=== PATIENT | female | born 1965 | race Caucasian/White ===

== ENCOUNTER 2022-05-25 22:59 | Emergency (ER) | payer OTHER ==
[~2022-05-25] VITALS: Ht 162.6 cm; Wt 102.1 kg
--- NOTE | 2022-05-25 23:00 | NUR ---
PT BIBA BLS ER BED 7
[2022-05-25 23:01] VITALS: BP 179/103
--- NOTE | 2022-05-25 23:02 | NUR ---
Dr. Bower examining patient.
--- NOTE | 2022-05-26 00:26 | NUR ---
attempted to call pt number on file but the phone number is not in service.
--- NOTE | 2022-05-26 01:30 | NUR ---
SPOKE WITH ANNE BURRELL FOR PUBLIC SERVICE TO PT HOME. PT IS DISCHARGED AND UNABLE TO REMEMBER PHONE NUMBER BUT ADDRESS GIVEN. SPOKE WITH DISPATCHER WILL SEND OFFICER TO REACH SUL[place], HER SON OR BROTHER TO PICK PT UP.
--- NOTE | 2022-05-26 01:48 | NUR ---
spoke with officer sasha that the officer spoke with brother linda baird will pick pt up in about 10mins. brother's phone #[phone]
[2022-05-26 02:13] VITALS: BP 161/99
--- NOTE | 2022-05-26 02:13 | NUR ---
Patient discharged. Written and verbal after care instructions given and explained about alcohol intoxication and fall prevention at home. Patient verbalized understanding. Wheel Chair Assisted to car with Tae the son picking patient up. All questions addressed prior to discharge. Advised to follow up with PMD.
== END 2022-05-26 02:13 | disposition home or self-care (01) ==
LOC: MED 22:59
DX: F10.129 Alcohol abuse with intoxication, unspecified (principal); Y90.9 Presence of alcohol in blood, level not specified
CPT/HCPCS: 99283

== ENCOUNTER 2022-08-31 19:27 | Emergency (ER) | payer OTHER ==
[~2022-08-31] VITALS: Ht 149.9 cm; Wt 90.3 kg
[2022-08-31 19:59] VITALS: BP 142/85
[2022-08-31] MEDS ORDERED: KETOROLAC 60 MG/2 ML VIAL IM ONE (20:20)
[2022-08-31] MEDS ORDERED: PRED20TA5 PO (20:23)
[2022-08-31] MEDS ORDERED: IBUP-2213 PO (20:23)
[2022-08-31 20:40] VITALS: BP 142/85
--- NOTE | 2022-08-31 20:40 | NUR ---
Patient discharged with v/s stable. Written and verbal after care instructions given and explained. Patient alert, oriented and verbalized understanding of instructions. Ambulatory with steady gait. All questions addressed prior to discharge. ID band removed. Patient advised to follow up with PMD. Rx of PREDNISIONE IBUPROFEN given. Patient educated on indication of medication including possible reaction and side effects. Opportunity to ask questions provided and answered.
== END 2022-08-31 20:40 | disposition home or self-care (01) ==
LOC: MED 19:27
DX: J02.9 Acute pharyngitis, unspecified (principal); R05.9 Cough, unspecified; I10 Essential (primary) hypertension; E11.9 Type 2 diabetes mellitus without complications; Z86.73 Personal history of transient ischemic attack (TIA), and cerebral infarction without residual deficits; Z79.4 Long term (current) use of insulin; Z79.899 Other long term (current) drug therapy
CPT/HCPCS: 96372; 99283; J1885

== ENCOUNTER 2023-11-08 22:14 | Emergency (ER) | payer OTHER ==
[~2023-11-08] VITALS: Ht 149.9 cm; Wt 95.3 kg
[~2023-11-08 22:14] MED LIST: IBUP-2213 PO; PRED20TA5 PO
[2023-11-08 22:16] VITALS: BP 163/88; PULSE 102; RESP 18; TEMP 98.2; O2SAT 98
[2023-11-08 23:22] LABS: BASOPHILS # (AUTO) 0.1 K/uL (0.00-0.22); BASOPHILS % (AUTO) 0.9 % (0.0-2.0); EOSINOPHILS # (AUTO) 0.1 K/uL (0-0.4); HEMATOCRIT 35.8 % (36-48); HEMOGLOBIN 11.8 g/dL (12.0-16.0); LYMPHOCYTES # (AUTO) 2.2 K/uL (2.5-16.5); LYMPHOCYTES % (AUTO) 25.5 % (20.5-51.1); MEAN CORPUSCULAR HEMOGLOBIN 27 pg (27-31); MEAN CORPUSCULAR HGB CONC 33 g/dL (33-37); MEAN CORPUSCULAR VOLUME 81.9 fL (80-94); MONOCYTES # (AUTO) 0.8 K/uL (0.8-1.0); MONOCYTES % (AUTO) 9.3 % (1.7-9.3); NEUTROPHILS # (AUTO) 5.3 K/uL (1.8-7.7); NEUTROPHILS % (AUTO) 63.3 % (42.2-75.2); PLATELET COUNT (AUTO) 235 K/uL (140-450); RED BLOOD CELL COUNT(AUTO) 4.37 MIL/uL (4.20-5.40); RED CELL DISTRIBUTION WIDTH 14.7 % (11.6-13.7); WHITE BLOOD COUNT (AUTO) 8.4 K/uL (4.8-10.8)
[2023-11-08 23:24] LABS: BILIRUBIN,URINE NEGATIVE (NEGATIVE); BLOOD, URINE TRACE-I (NEGATIVE); COLOR,URINE YELLOW (YELLOW); LEUKOCYTE ESTERASE ,URINE 3+ (NEGATIVE); NITRITE, URINE POSITIVE (NEGATIVE); PROTEIN,URINE 1+ (NEGATIVE); UGLUCOSE NEGATIVE (NEGATIVE); UROBILINOGEN,URINE 0.2 EU/dL (0.2 - 1)
[2023-11-08 23:37] LABS: ANION GAP 14.4 (8-16); CALCIUM 8.2 mg/dL (8.5-10.1); CARBON DIOXIDE 24.4 mmol/L (21-32); CREATININE 1.2 mg/dL (0.6-1.3); POTASSIUM 3.8 mmol/L (3.5-5.1)
[2023-11-08 23:39] LABS: APPEARANCE,URINE SLIGHTLY CLOUDY (CLEAR)
[2023-11-08 23:40] LABS: ALBUMIN 3.4 g/dL (3.4-5.0); BILIRUBIN,DIRECT 0.2 mg/dL (0.0-0.3); TOTAL BILIRUBIN 0.6 mg/dL (0.0-1.0); TOTAL PROTEIN, SERUM 7.9 g/dL (6.4-8.2)
[2023-11-08 23:48] LABS: BACTERIA,URINE 3+ /HPF (None Seen); RBC,URINE 0-5 /HPF (0-5); SQUAMOUS EPITHELIAL CELL,UR 4-10 (MOD) /LPF (0-3 (FEW)); WBC,URINE TOO MANY TO COUNT /HPF (0-5)
[2023-11-09] MEDS ORDERED: cefTRIAXone 1,000 MG VIAL ONE (00:13)
[2023-11-09] MEDS ORDERED: LIDOCAINE MPF 1% 5 ML ONE (00:13)
[2023-11-09] MEDS: cefTRIAXone 1,000 MG in LIDOCAINE MPF 1% 2.1 ML IM ONE (00:15)
[2023-11-09] MEDS ORDERED: CIPR500T4 PO (00:17)
[2023-11-09 00:20] VITALS: BP 162/80; PULSE 109; RESP 20; TEMP 98.3; O2SAT 96
== END 2023-11-09 00:20 | disposition home or self-care (01) ==
LOC: MED 22:14
DX: N39.0 Urinary tract infection, site not specified (principal); E11.9 Type 2 diabetes mellitus without complications; I10 Essential (primary) hypertension; Z86.73 Personal history of transient ischemic attack (TIA), and cerebral infarction without residual deficits; Z79.4 Long term (current) use of insulin; Z79.899 Other long term (current) drug therapy
CPT/HCPCS: 36415; 71045; 80048; 80076; 81001; 83880; 85025; 87086; 87186; 93005; 96372; 99285; J0696; J2001; Q0092